=== PATIENT | female | born 1985 | race Two or more races ===

== ENCOUNTER 2017-07-31 21:36 | Emergency (ER) | payer OTHER ==
[~2017-07-31] VITALS: Ht 152.4 cm; Wt 109.3 kg
[2017-07-31] MEDS ORDERED: NKM (21:42)
--- NOTE | 2017-07-31 21:52 | Emergency Room Report ---
History of Present Illness General Chief Complaint: Multiple Trauma/Fall Source: Patient Present Illness HPI A 32-year-old female who is right-hand dominant. She was getting out of car walking home when she slipped and fell. She put out her right hand to brace her fall and that her right thumb backward. Complaining of right thumb pain. This occurred just prior to arrival. No other injury. Did not pass out. Denies any fever or chills she denies any nausea vomiting. Pain is 7/10. Worse with movement. Allergies: Coded Allergies: No Known Allergies (Unverified , 07/31/17) Patient History Past Medical History: see triage record, old chart reviewed Past Surgical History: none Pertinent Family History: none Social History: Denies: smoking Last Menstrual Period: july 02 Now: No Immunizations: other Reviewed Nursing Documentation: PMH: Agreed, PSxH: Agreed Nursing Documentation-PMH Past Medical History: No Stated History Review of Systems Eye: Denies: eye pain, blurred vision ENT: Denies: ear pain, nose congestion, throat swelling Respiratory: Denies: cough, shortness of breath Cardiovascular: Denies: chest pain, palpitations Gastrointestinal: Denies: abdominal pain, diarrhea, nausea, vomiting Musculoskeletal: Reports: joint pain, Denies: back pain Skin: Denies: rash Neurological: Denies: headache, numbness Endocrine: Denies: increased thirst, increased urine Hematologic/Lymphatic: Denies: easy bruising All Other Systems: negative except mentioned in HPI Physical Exam Vital Signs Date Time Temp Pulse Resp B/P (MAP) Pulse Ox O2 Delivery O2 Flow Rate FiO2 07/31/17 21:38 98.6 84 16 132/106 98 Room Air vitals unremarkable Sp02 EP Interpretation: reviewed, normal General Appearance: well appearing, no apparent distress, alert, obese Head: normocephalic, atraumatic Eyes: bilateral eye PERRL, bilateral eye EOMI ENT: hearing grossly normal, normal pharynx Neck: full range of motion, supple, no meningismus Respiratory: chest non-tender, lungs clear, normal breath sounds Cardiovascular #1: regular rate, rhythm, no murmur Gastrointestinal: normal bowel sounds, non tender, no mass, no organomegaly, no bruit, non-distended Musculoskeletal: back normal, gait/station normal, normal range of motion, other - Right thumb with tenderness at the base. No deformity. No laxity. Sensation normal. No edema. Full range of motion. Psychiatric: mood/affect normal Skin: warm/dry Procedures Splinting Splinting : Consent: Verbal Location: Right thumb Pre-Made Type: Splint: thumb spica Pre-Proc Neuro Vasc Exam: normal Post-Proc Neuro Vasc Exam: normal Patient Tolerated: Well Complications: None Medical Decision Making Diagnostic Impression: Primary Impression: Sprain of hand, thumb, right Qualified Codes: S63.641A - Sprain of metacarpophalangeal joint of right thumb , initial encounter ER Course Patient with a thumb sprain. No fracture or dislocation. We'll discharge home. Other X-Ray Diagnostic Results Other X-Ray Diagnostic Results : X-Ray ordered: Right thumb x-rays # of Views/Limited Vs Complete: 3 View Indication: Pain EP Interpretation: Yes Interpretation: no dislocation, no soft tissue swelling, no fractures Impression: No acute disease Interpreting ER Provider: Electronically signed by Armando Prather MD Last Vital Signs Date Time Temp Pulse Resp B/P (MAP) Pulse Ox O2 Delivery O2 Flow Rate FiO2 07/31/17 21:38 98.6 84 16 132/106 98 Room Air Status: improved Disposition: HOME, SELF-CARE Condition: Stable Scripts Ibuprofen* (MOTRIN*) 600 Mg Tablet 600 MG ORAL Q8H Y for For Pain, #30 TAB 0 Refills Prov: ARMANDO PRATHER M.D. 07/31/17 Additional Instructions: Followup with your DrMaksim in 7 days. Return if symptom worsen. ARMANDO PRATHER M.D. Jul 31, 2017 21:52
[2017-07-31] MEDS ORDERED: IBUPROFEN600 MG ORAL (22:10)
[2017-07-31 22:13] VITALS: BP 132/106
[2017-07-31 22:14] VITALS: BP 1/1
--- NOTE | 2017-08-01 10:46 | Diagnostic Imaging Report ---
Indication: Pain Comparison: None Findings: 4 views of the right toe obtained. No acute fracture, malalignment or foreign body identified. Impression: Negative study
== END 2017-07-31 22:10 | disposition home or self-care (01) ==
LOC: EMR 22:02
DX: S63.641A Sprain of metacarpophalangeal joint of right thumb, initial encounter (principal); W01.0XXA Fall on same level from slipping, tripping and stumbling without subsequent striking against object, initial encounter; Y93.9 Activity, unspecified; Y92.9 Unspecified place or not applicable
CPT/HCPCS: 99283

== ENCOUNTER 2018-03-19 19:17 | Emergency (ER) | payer OTHER ==
[~2018-03-19] VITALS: Ht 152.4 cm; Wt 110.7 kg
[~2018-03-19 19:17] MED LIST: IBUPROFEN600 MG ORAL; NKM
[2018-03-19] MEDS ORDERED: METFORMIN HCL500 M1 ORAL (19:29)
[2018-03-19 19:31] VITALS: BP 171/99
--- NOTE | 2018-03-19 19:59 | Emergency Room Report ---
History of Present Illness General Chief Complaint: Upper Respiratory Illness Source: Patient Present Illness HPI 33 yo female patient presents to ER complaining of cough and sore throat for a week. Denies hemoptysis. Reports sputum is green. Denies chest pain, SOB. Denies fever currently, reports fever 1 week ago to 101. Also reports MONIQUE during this time. Reports sore throat and MONIQUE arrived after cough Reports hx of asthma when she was younger. Denies vision loss, ear pain. Denies nausea, vomiting, diarrhea. Denies abdominal pain. Denies hx of HTN. Reports currently being followed by physician for elevated blood pressure; reports physician states she does not need HTN meds at this time. Reports hx of sick contacts at home with similar symptoms. Denies calf pain, denies neck pain. Denies dysuria, hematuria. Reports LMP two week ago, normal for her. Reports not taking OCP. Denies hx of cardiovascular disease. Denies hx of cancer. Denies hx of travel. Allergies: Coded Allergies: No Known Allergies (Unverified , 07/31/17) Patient History Past Medical History: see triage record Last Menstrual Period: 03/02/18 Now: No : 1 Para: 1 Reviewed Nursing Documentation: PMH: Agreed; PSxH: Agreed Nursing Documentation-PMH Hx Asthma: Yes Hx Diabetes: Yes Review of Systems All Other Systems: negative except mentioned in HPI Physical Exam Vital Signs Date Time Temp Pulse Resp B/P (MAP) Pulse Ox O2 Delivery O2 Flow Rate FiO2 03/19/18 19:26 98.1 76 16 171/99 96 Room Air 98.1 Sp02 EP Interpretation: reviewed, normal General Appearance: well appearing, no apparent distress, alert, GCS 15, non- toxic Head: normocephalic, atraumatic Eyes: bilateral eye normal inspection, bilateral eye PERRL ENT: hearing grossly normal, normal pharynx, no angioedema, normal voice, TMs + canals normal, uvula midline, moist mucus membranes, other - no phayrngeal erythema, no drooling, no tonsillar exudates Neck: full range of motion Respiratory: lungs clear, normal breath sounds, no rhonchi, no respiratory distress, no accessory muscle use, no wheezing, speaking full sentences, other - no stridor Cardiovascular #1: regular rate, rhythm, no edema Genitourinary: no CVA tenderness Musculoskeletal: back normal, digits/nails normal, gait/station normal, normal range of motion, non-tender, no calf tenderness, Rob's Sign negative Neurologic: alert, oriented x3, responsive, motor strength/tone normal, sensory intact Psychiatric: mood/affect normal Skin: no rash Lymphatic: no adenopathy Medical Decision Making PA Attestation Dr. Scott is my supervising Physician whom patient management has been discussed with. Diagnostic Impression: Primary Impression: Elevated blood pressure reading Additional Impression: Pneumonia ER Course Pt presents to ED c/o cough. DDX considered but are not limited to influenza, viral URI, pneumonia, strep throat, rhinitis, sinusitis, otitis media. Low suspicion for PE per Well's criteria. VITAL SIGNS are WNL, patient is afebrile. Blood pressure elevated. Will repeat BP. Patient reports currently being seen by PCP for high blood pressure, not currently being treated with medication. Denies chest pain, SOB, abdominal pain, vision changes. Does not require tx in ER acutely, followup with primary care provider. Ordered CXR, viscous lidocaine, Tylenol. ER COURSE: CXR shows lingular opacity in left lower lobe, will treat as PNA, provide abx. Patient informed of results. Patient stable for outpatient treatment. Patient resting comfortably, alert and oriented, afebrile, nontoxic appearing. Blood pressure rechecked, 158/95. Patient instructed to followup with primary care provider. Discuss further treatment and referral. Informed patient cough possibly causing MONIQUE and sore throat symptoms. Take Tylenol for pain symptoms. Salt water gargles for sore throat. Patient reports feeling better following administration of medication in ER. DISCHARGE: - Rx given for Azithromycin -Rx given for Tylenol/Acetaminophen -Rx given for Promethazine syrup for cough sx. -Rx provided for Albuterol due to hx of asthma. Instructed to followup with PCP. Denies breathing difficulty symptoms acutely in ER. At this time pt is stable for d/c to home. Patient is resting comfortably, in no acute distress, nontoxic appearing, laughing and smiling, talking without difficulty. Patient to take medications as instructed Will provide with patient care instructions and any necessary prescriptions. Care plan and follow-up instructions provided. Patient instructed to follow-up with primary care provider in 3 - 5 days. Patient questions asked and answered. Patient reports understanding and agreement to treatment plan. ER precautions given. Patient instructed to return to ER immediately for any new or worsening of symptoms including but not limited to increasing SOB, persistent fever. Chest X-Ray Diagnostic Results Chest X-Ray Diagnostic Results : Chest X-Ray Ordered: Yes # of Views/Limited/Complete: 1 View Indication: Other - cough PA Xray: Interpretation reviewed, by supervising MD, and agrees with findings. Interpretation: no effusion, no pneumothorax, other - left lower lobe consolidation Impression: Other - pneumonia PA Scribe Text Raul Vasques PA-C Last Vital Signs Date Time Temp Pulse Resp B/P (MAP) Pulse Ox O2 Delivery O2 Flow Rate FiO2 03/19/18 19:31 98.1 76 16 171/99 96 Room Air 98.1 Disposition: HOME, SELF-CARE Condition: Stable Scripts Azithromycin* (ZITHROMAX*) 250 Mg Tablet 250 MG ORAL DAILY, #6 TAB 0 Refills Take two tables once daily for 1 day, then one tablet once daily for 4 days. Prov: Hector Vasques 03/19/18 Albuterol Sulfate* (ALBUTEROL SULFATE MDI*) 8.5 Gm Hfa.aer.ad 2 PUFF INH Q4H, #1 INH 0 Refills Prov: Hector Vasques 03/19/18 Acetaminophen* (TYLENOL EXTRA STRENGTH*) 500 Mg Tablet 500 MG ORAL Q8H PRN for Prn Headache/Temp > 101, #30 TAB 0 Refills Prov: Hector Vasques 03/19/18 Promethazine Hcl (PROMETHAZINE HCL*) 6.25 Mg/5 Ml Syrup 5 ML ORAL Q8H, #120 ML 0 Refills Prov: Hector Vasques 03/19/18 Referrals: [facility]ERR[facility] (PCP) Patient Instructions: Community-Acquired Pneumonia, Adult, [id number], Hypertension, [id number] Additional Instructions: Followup with primary care provider in 3 -5 days. Discuss referral to cardiology. Discuss elevated blood pressure reading. Take medications as directed. Patient questions asked and answered. ER precautions given, patient instructed to return to ER immediately for any new or worsening of symptoms. Hector Vasques Mar 19, 2018 19:59
[2018-03-19] MEDS ORDERED: Acetaminophen 500mg (ES) tab ORAL ONE (20:15)
[2018-03-19] MEDS ORDERED: Lidocaine 2% Visc 15ml soln ORAL ONE (20:15)
[2018-03-19] MEDS ORDERED: PROMETHAZI6.25 MG/1 ORAL (20:21)
[2018-03-19] MEDS ORDERED: ALBUTEROL SULF8.5 GM INH (20:21)
[2018-03-19] MEDS ORDERED: TYLENOL EXTRA500 MG ORAL (20:21)
[2018-03-19] MEDS ORDERED: ZITHROMAX250 MG ORAL (20:55)
[2018-03-19 21:05] VITALS: BP 158/95
--- NOTE | 2018-03-20 08:53 | Diagnostic Imaging Report ---
Indication: Chest pain Technique: One view of the chest Comparison: none Findings: Lungs and pleural spaces are clear. Heart size is normal Impression: No acute process
== END 2018-03-19 21:05 | disposition home or self-care (01) ==
LOC: EMR 19:40
DX: J18.9 Pneumonia, unspecified organism (principal); R03.0 Elevated blood-pressure reading, without diagnosis of hypertension; E11.9 Type 2 diabetes mellitus without complications; J45.909 Unspecified asthma, uncomplicated
CPT/HCPCS: 71045; 99284

== ENCOUNTER 2018-10-02 22:39 | Emergency (ER) | payer OTHER ==
[~2018-10-02] VITALS: Ht 152.4 cm; Wt 101.2 kg
[~2018-10-02 22:39] MED LIST changes: +ALBUTEROL SULF8.5 GM INH; +METFORMIN HCL500 M1 ORAL; +PROMETHAZI6.25 MG/1 ORAL; +TYLENOL EXTRA500 MG ORAL; +ZITHROMAX250 MG ORAL
[2018-10-02] MEDS ORDERED: IBUPROFEN600 MG ORAL (23:05)
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
[2018-10-02 23:30] VITALS: BP 128/73
[2018-10-02 23:41] VITALS: BP 133/78
--- NOTE | 2018-10-03 10:49 | Diagnostic Imaging Report ---
Indication: Back pain Comparison: None Findings: 3 views of the sacrum and coccyx were obtained. Findings: No obvious acute fracture is identified. The sacroiliac joints are unremarkable. Sacral ala appear symmetric. There is some obscuring due to overlying bowel gas and stool. The lateral view is suboptimal with nonvisualization of the coccyx. Impression: No acute injury identified. Limitations as above
== END 2018-10-02 23:41 | disposition home or self-care (01) ==
LOC: EMR 23:01
DX: S30.0XXA Contusion of lower back and pelvis, initial encounter (principal); V43.52XA Car driver injured in collision with other type car in traffic accident, initial encounter; Y92.410 Unspecified street and highway as the place of occurrence of the external cause; J45.909 Unspecified asthma, uncomplicated
CPT/HCPCS: 72220; 99283

== ENCOUNTER 2019-02-09 12:54 | Emergency (ER) | payer OTHER ==
[~2019-02-09] VITALS: Ht 149.9 cm; Wt 104.3 kg
[2019-02-09] MEDS ORDERED: JANUMET 50-1,01 EACH ORAL (13:13)
[2019-02-09 14:06] VITALS: BP 159/99
--- NOTE | 2019-02-09 14:18 | Emergency Room Report ---
History of Present Illness General Chief Complaint: Sore Throat Source: Patient Present Illness HPI 34-year-old female presents to the emergency department complaining of nasal congestion, rhinorrhea, ear pressure and intermittent sore throat that she rates as 5 out of 10 in severity 3 days. Patient states that she was sent home from work due to her symptoms. Patient states that she is currently taking Janumet and has not taken any orgm-iuy-[id number] medications that she is worried about interactions. Patient reports that her blood sugars been well- controlled and she checks regularly. Patient denies fevers or chills. Patient states that her son had similar symptoms last week she denies recent travel she denies any aggravating or relieving factors otherwise. reports mild cough that she states is not as bothersome as other symptoms. Allergies: Coded Allergies: No Known Allergies (Unverified , 07/31/17) Patient History Past Medical History: see triage record, DM, other - fatty liver Past Surgical History: none Pertinent Family History: none Now: No Reviewed Nursing Documentation: PMH: Agreed; PSxH: Agreed Nursing Documentation-PMH Hx Asthma: Yes Hx Diabetes: No - prediabetes Review of Systems All Other Systems: negative except mentioned in HPI Physical Exam Vital Signs Date Time Temp Pulse Resp B/P (MAP) Pulse Ox O2 Delivery O2 Flow Rate FiO2 02/09/19 13:09 98.1 90 18 159/99 97 Sp02 EP Interpretation: reviewed, normal General Appearance: no apparent distress, alert, GCS 15, non-toxic Head: normocephalic, atraumatic Eyes: bilateral eye normal inspection, bilateral eye PERRL ENT: hearing grossly normal, normal voice, TMs + canals normal, uvula midline, moist mucus membranes, nasal congestion Neck: full range of motion, no meningismus Respiratory: chest non-tender, lungs clear, normal breath sounds, speaking full sentences Cardiovascular #1: regular rate, rhythm Musculoskeletal: back normal, gait/station normal, normal range of motion, non- tender Neurologic: alert, oriented x3, responsive, motor strength/tone normal, sensory intact, speech normal, grossly normal Psychiatric: judgement/insight normal Skin: normal color, no rash, warm/dry, well hydrated Lymphatic: no adenopathy Medical Decision Making PA Attestation Dr. Long is my supervising Physician whom patient management has been discussed with. Diagnostic Impression: Primary Impression: Upper respiratory infection, viral Additional Impression: Post-nasal drainage ER Course 34-year-old female presents to the emergency department complaining of nasal congestion, rhinorrhea, ear pressure and intermittent sore throat that she rates as 5 out of 10 in severity 3 days. Patient states that she was sent home from work due to her symptoms. Patient states that she is currently taking Janumet and has not taken any avdn-alr-atbxopd medications that she is worried about interactions. Patient reports that her blood sugars been well- controlled and she checks regularly. Patient denies fevers or chills. Patient states that her son had similar symptoms last week she denies recent travel she denies any aggravating or relieving factors otherwise. reports mild cough that she states is not as bothersome as other symptoms. Ddx considered but are not limited to URI, pneumonia, PE, strep pharyngitis, meningitis. Vital signs: Pt. is afebrile, the remaining VS are WNL H&PE are most consistent with URI- no meningeal signs, oropharynx is not involved, no evidence of bacterial infection at this time. ORDERS: none required at this time, the diagnosis is clinical ED INTERVENTIONS: None required at this time. DISCHARGE: At this time pt. is stable for d/c to home. Will provide printed patient care instructions, and any necessary prescriptions. Care plan and follow up instructions have been discussed with the patient prior to discharge. Last Vital Signs Date Time Temp Pulse Resp B/P (MAP) Pulse Ox O2 Delivery O2 Flow Rate FiO2 02/09/19 14:06 98.1 77 18 159/99 97 Disposition: HOME, SELF-CARE Condition: Stable Referrals: NON PHYSICIAN (PCP) Departure Forms: Return to Work Return to Work Date: Feb 10, 2019 Work Restrictions: None Return to Full Activity: Feb 10, 2019 Patient Instructions: Upper Respiratory Infection, Adult, [id number] Additional Instructions: Take medications as directed. * Check Blood Sugar Regularly as temporary rise in glucose may occur * Follow up with a Primary Care Provider in 3-5 days, even if your symptoms have resolved. --Please review list of primary care clinics, if you do not already have a primary care provider Return sooner to ED if new symptoms occur, or current symptoms become worse. - Please note that this Emergency Department Report was dictated using [employer] admin technology software, occasionally this can lead to erroneous entry secondary to interpretation by the dictation equipment. Stefani Sotelo Feb 09, 2019 14:18
[2019-02-09] MEDS ORDERED: GUAIFENESIN1200 MG PO (14:19)
[2019-02-09] MEDS ORDERED: ZYRTEC-D TABLE1 EACH ORAL (14:19)
[2019-02-09 15:10] VITALS: BP 155/90
--- NOTE | 2019-02-09 15:12 | NUR ---
ER DISCHARGE NOTE: Patient is cleared to be discharged per ERMD, pt is aox4, on room air, with stable vital signs. pt was given dc and prescription instructions, pt was able to verbalize understanding, pt is able to ambulate with steady gait. pt took all belongings.
== END 2019-02-09 14:50 | disposition home or self-care (01) ==
LOC: EMR 13:50
DX: J06.9 Acute upper respiratory infection, unspecified (principal); B97.89 Other viral agents as the cause of diseases classified elsewhere; R09.82 Postnasal drip; J45.909 Unspecified asthma, uncomplicated; R73.03 Prediabetes
CPT/HCPCS: 99282

== ENCOUNTER 2019-02-16 04:29 | Emergency (ER) | payer OTHER ==
[~2019-02-16] VITALS: Ht 149.9 cm; Wt 106.6 kg
[~2019-02-16 04:29] MED LIST changes: +GUAIFENESIN1200 MG PO; +JANUMET 50-1,01 EACH ORAL; +ZYRTEC-D TABLE1 EACH ORAL
[2019-02-16] MEDS ORDERED: PSEUDOEPHEDRINE60 MG PO (04:54)
[2019-02-16] MEDS ORDERED: AUGMENTIN 875-1 EAC1 ORAL (04:54)
[2019-02-16] MEDS ORDERED: IBUPROFEN600 MG ORAL (04:54)
[2019-02-16 04:55] VITALS: BP 142/88
--- NOTE | 2019-02-16 04:55 | Emergency Room Report ---
History of Present Illness General Chief Complaint: Earache Source: Patient Present Illness HPI Is a 34-year-old female with history of diabetes. She presents with chief complaint of right ear pain. She woke up with the pain this morning. Pain is 8 out of 10. Worse with blow hershe had a cold for about a week. No fever chills. Does still have congestion and cough. Allergies: Coded Allergies: No Known Allergies (Unverified , 02/16/19) Patient History Past Medical History: see triage record, old chart reviewed, DM Past Surgical History: other Pertinent Family History: none Social History: Denies: smoking Last Menstrual Period: 01-28-19 Now: No Immunizations: other Reviewed Nursing Documentation: PMH: Agreed; PSxH: Agreed Nursing Documentation-PMH Hx Asthma: Yes Hx Diabetes: Yes Review of Systems Eye: Reports: nose congestion; Denies: eye pain, blurred vision ENT: Reports: ear pain; Denies: nose congestion, throat swelling Respiratory: Reports: cough; Denies: shortness of breath Cardiovascular: Denies: chest pain, palpitations Gastrointestinal: Denies: abdominal pain, diarrhea, nausea, vomiting Musculoskeletal: Denies: back pain, joint pain Skin: Denies: rash Neurological: Denies: headache, numbness Endocrine: Denies: increased thirst, increased urine Hematologic/Lymphatic: Denies: easy bruising All Other Systems: negative except mentioned in HPI Physical Exam Vital Signs Date Time Temp Pulse Resp B/P (MAP) Pulse Ox O2 Delivery O2 Flow Rate FiO2 02/16/19 04:32 98.1 90 18 142/88 96 Room Air vitals normal Sp02 EP Interpretation: reviewed, normal General Appearance: well appearing, no apparent distress, alert Head: normocephalic, atraumatic Eyes: bilateral eye PERRL, bilateral eye EOMI ENT: hearing grossly normal, normal pharynx, other - Right TM is erythematous and bulging Neck: full range of motion, supple, no meningismus Respiratory: chest non-tender, lungs clear, normal breath sounds Cardiovascular #1: regular rate, rhythm, no murmur Gastrointestinal: normal bowel sounds, non tender, no mass, no organomegaly, no bruit, non-distended Musculoskeletal: back normal, gait/station normal, normal range of motion Psychiatric: mood/affect normal Skin: warm/dry Medical Decision Making Diagnostic Impression: Primary Impression: Viral URI Additional Impression: Right acute otitis media ER Course Patient with a viral symptoms with secondary otitis media. No perforation or mastoiditis. No meningitis or other serious bacterial infection. Last Vital Signs Date Time Temp Pulse Resp B/P (MAP) Pulse Ox O2 Delivery O2 Flow Rate FiO2 02/16/19 04:32 98.1 90 18 142/88 96 Room Air Status: improved Disposition: HOME, SELF-CARE Condition: Stable Scripts Pseudoephedrine Hcl* (SUDAFED*) 60 Mg Tablet 60 MG PO Q6H, #15 TAB Prov: Armando Prather MD 02/16/19 Ibuprofen* (MOTRIN*) 600 Mg Tablet 600 MG ORAL THREE TIMES A DAY, #30 TAB 0 Refills Prov: Armando Prather MD 02/16/19 Amoxicillin/Potassium Clav 875-125* (AUGMENTIN 875-125 TABLET*) 1 Each Tablet 1 TAB ORAL TWICE A DAY, #14 TAB Prov: Armando Prather MD 02/16/19 Patient Instructions: Otitis Media, Adult, [id number] Additional Instructions: Follow-up with your doctor in 7 days. Return if symptom worsen. Armando Prather MD Feb 16, 2019 04:55
--- NOTE | 2019-02-16 04:55 | NUR ---
ER Nurse Note: Pt came from home c/o right ear pain; 10/10 pain. Pt states she has congestion, cough and was sick for one week. No drainage, no redness from right ear pain. Pt a&ox4, VSS, no signs of distress. ERMD at pt side; will continue to montior.
[2019-02-16 05:05] VITALS: BP 142/88
--- NOTE | 2019-02-16 05:05 | NUR ---
ED Nurse Note Pt seen, treated, medically cleared by ER MD for discharge. Discharge instructions and prescription given with repeat verbalization by pt. Instructed pt to follow up with primary care physican within one week. ID band removed. Pt is AAO x4, VSS, no signs of distress, ambulatory and left with all belongings.
== END 2019-02-16 05:25 | disposition home or self-care (01) ==
LOC: EMR 05:21
DX: H66.91 Otitis media, unspecified, right ear (principal); J06.9 Acute upper respiratory infection, unspecified; B97.89 Other viral agents as the cause of diseases classified elsewhere; E11.9 Type 2 diabetes mellitus without complications; J45.909 Unspecified asthma, uncomplicated
CPT/HCPCS: 99282